=== PATIENT | female | born 1970 | race Caucasian/White ===

== ENCOUNTER 2016-05-05 19:54 | Emergency (ER) | payer BC ==
[2016-05-05] MEDS ORDERED: NS 0.9% 1000 ML* 2,000 ML IV ONE (20:41)
[2016-05-05] MEDS ORDERED: Ondansetron INJ* 2 MG/ML VIAL IV ONE (20:41)
[2016-05-05] MEDS ORDERED: Acetaminophen TAB* 325 MG PO ONE (20:42)
[2016-05-05 21:10] LABS: Hematocrit 38 % (35-47); Hemoglobin 12.5 g/dl (12.0-16.0); Mean Corpuscular HGB Conc 33 g/dl (31-36); Mean Corpuscular Hemoglobin 29 pg (27-31); Mean Corpuscular Volume 87 fL (80-97); Mean Platelet Volume 9 um3 (7.4-10.4); Red Blood Count 4.29 10^6/ul (4.0-5.4); Red Cell Distribution Width 13 % (10.5-15); White Blood Count 8.3 10^3/ul (3.5-10.8)
[2016-05-05 21:29] LABS: ALT 9 U/L (7-52); AST 15 U/L (13-39); Albumin 4.3 g/dL (3.2-5.2); Alkaline Phosphatase 33 U/L (34-104); Anion Gap 7 mmol/L (2-11); BUN/Creatinine Ratio 17.9 (8-20); Blood Urea Nitrogen 12 mg/dL (6-24); C Reactive Protein < 1.00 mg/L (< 5.00); CO2 Carbon Dioxide 24 mmol/L (22-32); Calcium 9.1 mg/dL (8.6-10.3); Chloride 106 mmol/L (101-111); EGFR African American 121.9 (>60); EGFR Non-African American 94.8 (>60); Globulin 2.6 g/dL (2-4); Glucose 96 mg/dL (70-100); Lipase 22 U/L (11.0-82.0); Magnesium 1.9 mg/dL (1.9-2.7); Potassium 3.7 mmol/L (3.5-5.0); Sodium 137 mmol/L (133-145); Total Protein 6.9 g/dL (6.4-8.9)
--- NOTE | 2016-05-05 21:44 | RAD ---
HISTORY: Headache, light sensitivity, nausea COMPARISONS: None TECHNIQUE: Multiple contiguous axial CT scans were obtained of the head without intravenous contrast. FINDINGS: HEMORRHAGE/INFARCT: There is no hemorrhage or acute infarct. MASSES/SHIFT: There is no mass or shift. EXTRA-AXIAL SPACES: There are no extra-axial fluid collections. SULCI AND VENTRICLES: The sulci and ventricles are normal in size and position for the patient's stated age. CEREBRUM: There are no focal parenchymal abnormalities. BRAINSTEM: There are no focal parenchymal abnormalities. CEREBELLUM: There are no focal parenchymal abnormalities. VESSELS: The vessels are grossly normal. PARANASAL SINUSES: The paranasal sinuses are clear. ORBITS: The orbits are unremarkable. BONES AND SOFT TISSUE: No bone or soft tissue abnormalities are noted. OTHER: None IMPRESSION: NO ACUTE INTRACRANIAL PATHOLOGY.
[2016-05-05 22:18] LABS: TSH (Thyroid Stimulating Horm) 1.04 mcIU/mL (0.34-5.60)
--- NOTE | 2016-05-05 22:22 | ED ---
Bisi Franco Alok, scribed for Shiraz Urbina MD on 05/05/16 at 2040 . Headache - HPI Summary HPI Summary: 46 y/o female presents to the ED for a diffuse COLON beginning in the afternoon and progressing ever since. Pt states what began as a slight COLON this afternoon she initially attributed to not having coffee this morning progressed into a very intense diffuse COLON by 1900 while at work prompting her visit to the ED. Pt also notes nausea but denies any weakness, numbness, vision changes, neck pain, or sinus discomfort. Pt states she took 3 Advil at 1915 [employer] which did not alleviate her symptoms, though her pain as improved somewhat since arriving to the ED. Pt takes no regular medications and denies any other pertinent PMHx at this time. - History Of Current Complaint Chief Complaint: EDHeadache Stated Complaint: SEVERE HEADACHE Time Seen by Provider: 05/05/16 20:20 Hx Obtained From: Patient Onset/Duration: Gradual Onset, Started hours ago, Still Present, Worse Since Initially Headache Was: Mild Currently Pain Is: Moderate Timing: Constant, Hours Location of Headache: Diffuse Aggravating Factor: Nothing Allevating Factors: Nothing Associated Signs And Symptoms: Nausea - Allergies/Home Medications Allergies/Adverse Reactions: Allergies Allergy/AdvReac Type Severity Reaction Status Date / Time No Known Allergies Allergy Verified 05/05/16 19:58 PMH/Surg Hx/FS Hx/Imm Hx - Cancer History Hx Chemotherapy: No Hx Radiation Therapy: No Infectious Disease History: No Infectious Disease History: Denies: Traveled Outside the [place] in Last 30 Days - Family History Known Family History: Positive: Other - Yes - Breast CA (Maternal grandmother) - Social History Occupation: Employed Full-time Lives: With Family - Review of Systems Negative: Blurred Vision ENT: Negative Negative: Other - Sinus Pressure Cardiovascular: Negative Respiratory: Negative Positive: Nausea Genitourinary: Negative Negative: Other - Neck Pain Skin: Negative Positive: Headache. Negative: Weakness, Numbness Psychological: Normal All Other Systems Reviewed And Are Negative: Yes Physical Exam Triage Information Reviewed: Yes Vital Signs On Initial Exam: Initial Vitals Temp Pulse Resp BP Pulse Ox 97.4 F 88 15 160/90 100 05/05/16 19:55 05/05/16 19:55 05/05/16 19:55 05/05/16 19:55 05/05/16 19:55 Vital Signs Reviewed: Yes Appearance: Positive: Well-Appearing, Pain Distress - Moderate Skin: Positive: Warm, Skin Color Reflects Adequate Perfusion, Dry Head/Face: Positive: Normal Head/Face Inspection Eyes: Positive: EOMI, LISSA ENT: Positive: Normal ENT inspection, TMs normal Neck: Positive: Supple, Nontender Respiratory/Lung Sounds: Positive: Clear to Auscultation, Breath Sounds Present Cardiovascular: Positive: RRR Abdomen Description: Positive: Nontender, Soft Bowel Sounds: Positive: Present Musculoskeletal: Positive: Strength/ROM Intact Neurological: Positive: Normal, Sensory/Motor Intact, Alert, Oriented to Person Place, Time, Other - No focal/neurological deficits Psychiatric: Positive: Affect/Mood Appropriate Diagnostics - Vital Signs Vital Signs Temp Pulse Resp BP Pulse Ox 05/05/16 19:55 97.4 F 88 15 160/90 100 - Laboratory Lab Results: Lab Results 05/05/16 05/05/16 05/05/16 Range/Units 21:00 21:00 21:00 WBC 8.3 (3.5-10.8) 10^3/ul RBC 4.29 (4.0-5.4) 10^6/ul Hgb 12.5 (12.0-16.0) g/dl Hct 38 (35-47) % MCV 87 (80-97) fL MCH 29 (27-31) pg MCHC 33 (31-36) g/dl RDW 13 (10.5-15) % Plt Count 202 (150-450) 10^3/ul MPV 9 (7.4-10.4) um3 Neut % (Auto) 45.6 (38-83) % Lymph % (Auto) 44.3 (25-47) % Freestone % (Auto) 6.2 (1-9) % Eos % (Auto) 3.3 (0-6) % Baso % (Auto) 0.6 (0-2) % Absolute Neuts (auto) 3.8 (1.5-7.7) 10^3/ul Absolute Lymphs (auto) 3.7 (1.0-4.8) 10^3/ul Absolute Monos (auto) 0.5 (0-0.8) 10^3/ul Absolute Eos (auto) 0.3 (0-0.6) 10^3/ul Absolute Basos (auto) 0.1 (0-0.2) 10^3/ul Absolute Nucleated RBC 0 10^3/ul Nucleated RBC % 0 INR (Anticoag Therapy) 1.10 (0.89-1.11) APTT 28.3 (26.0-36.3) seconds Sodium 137 (133-145) mmol/L Potassium 3.7 (3.5-5.0) mmol/L Chloride 106 (101-111) mmol/L Carbon Dioxide 24 (22-32) mmol/L Anion Gap 7 (2-11) mmol/L BUN 12 (6-24) mg/dL Creatinine 0.67 (0.51-0.95) mg/dL Est GFR ( Amer) 121.9 (>60) Est GFR (Non-Af Amer) 94.8 (>60) BUN/Creatinine Ratio 17.9 (8-20) Glucose 96 (70-100) mg/dL Lactic Acid (0.5-2.0) mmol/L Calcium 9.1 (8.6-10.3) mg/dL Magnesium 1.9 (1.9-2.7) mg/dL Total Bilirubin 0.50 (0.2-1.0) mg/dL AST 15 (13-39) U/L ALT 9 (7-52) U/L Alkaline Phosphatase 33 L (34-104) U/L C-Reactive Protein < 1.00 (< 5.00) mg/L Total Protein 6.9 (6.4-8.9) g/dL Albumin 4.3 (3.2-5.2) g/dL Globulin 2.6 (2-4) g/dL Albumin/Globulin Ratio 1.7 (1-3) Lipase 22 (11.0-82.0) U/L TSH 1.04 (0.34-5.60) mcIU/mL Beta HCG, Quant < 0.60 mIU/mL 05/05/16 Range/Units 21:00 WBC (3.5-10.8) 10^3/ul RBC (4.0-5.4) 10^6/ul Hgb (12.0-16.0) g/dl Hct (35-47) % MCV (80-97) fL MCH (27-31) pg MCHC (31-36) g/dl RDW (10.5-15) % Plt Count (150-450) 10^3/ul MPV (7.4-10.4) um3 Neut % (Auto) (38-83) % Lymph % (Auto) (25-47) % Freestone % (Auto) (1-9) % Eos % (Auto) (0-6) % Baso % (Auto) (0-2) % Absolute Neuts (auto) (1.5-7.7) 10^3/ul Absolute Lymphs (auto) (1.0-4.8) 10^3/ul Absolute Monos (auto) (0-0.8) 10^3/ul Absolute Eos (auto) (0-0.6) 10^3/ul Absolute Basos (auto) (0-0.2) 10^3/ul Absolute Nucleated RBC 10^3/ul Nucleated RBC % INR (Anticoag Therapy) (0.89-1.11) APTT (26.0-36.3) seconds Sodium (133-145) mmol/L Potassium (3.5-5.0) mmol/L Chloride (101-111) mmol/L Carbon Dioxide (22-32) mmol/L Anion Gap (2-11) mmol/L BUN (6-24) mg/dL Creatinine (0.51-0.95) mg/dL Est GFR ( Amer) (>60) Est GFR (Non-Af Amer) (>60) BUN/Creatinine Ratio (8-20) Glucose (70-100) mg/dL Lactic Acid 0.7 (0.5-2.0) mmol/L Calcium (8.6-10.3) mg/dL Magnesium (1.9-2.7) mg/dL Total Bilirubin (0.2-1.0) mg/dL AST (13-39) U/L ALT (7-52) U/L Alkaline Phosphatase (34-104) U/L C-Reactive Protein (< 5.00) mg/L Total Protein (6.4-8.9) g/dL Albumin (3.2-5.2) g/dL Globulin (2-4) g/dL Albumin/Globulin Ratio (1-3) Lipase (11.0-82.0) U/L TSH (0.34-5.60) mcIU/mL Beta HCG, Quant mIU/mL Result Diagrams: 05/05/16 21:00 05/05/16 21:00 Lab Statement: Any lab studies that have been ordered have been reviewed, and results considered in the medical decision making process. Re-Evaluation - Re-Evaluation First Eval Re-Evaluation Time: 21:50 Headache Course/Dx - Course Course Of Treatment: NO CRITICAL CARE TIME Assessment/Plan: HEADACHE ALMOST COMPLETELY RESOLVE WITH IVF, ZOFRAN AND ACETAMINOPHEN. DISCUSSED RESULTS WITH PATIENT/. DICHARGE HOME STABLE. - Diagnoses Provider Diagnoses: Headache Discharge - Discharge Plan Condition: Stable Disposition: HOME Patient Education Materials: General Headache (ED) Referrals: Italia Bryant MD [Primary Care Provider] - Additional Instructions: FOLLOW UP WITH YOUR DOCTOR. RETURN TO THE EMERGENCY DEPARTMENT FOR ANY WORSENING OF YOUR CONDITION; PAIN, HEADACHE, FEVER, WEAKNESS, YOU FEEL ILL OR QUESTIONS OR CONCERNS. The documentation as recorded by the Bisi joe Alok accurately reflects the service I personally performed and the decisions made by me, Shiraz Urbina MD.
[2016-05-05 22:35] VITALS: BP 118/66
== END 2016-05-05 22:33 | disposition home or self-care (01) ==
LOC: ED 19:54
DX: R51 Headache (principal); R11.0 Nausea
CPT/HCPCS: 36415; 70450; 80053; 83605; 83690; 83735; 84443; 84702; 85025; 85610; 85730; 86140; 96374; 99283; A9270-GY; J2405

== ENCOUNTER → 2018-02-03 08:53 | Day surgery (SDC) | payer BC ==
--- NOTE | 2017-12-23 09:37 | HP ---
PREOPERATIVE HISTORY AND PHYSICAL: DATE OF ADMISSION/SURGERY: 01/13/18 DATE OF OFFICE VISIT: 12/20/17 ATTENDING PHYSICIAN: Dr. Jabari Guillermo.* (DICTATED BY MARIZA CUNNINGHAM) CHIEF COMPLAINT: Right shoulder pain and stiffness. 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 No specific injury. Nighttime pain. She has participated in over 6 weeks of physical therapy and additional home exercises, which have not benefitted her significantly. She continues to have achy pain and stiffness, which is her biggest complaint. She has tried ibuprofen 400 mg regularly and has not noticed improvement. She had an MRI of the shoulder 08/11/17, which shows tendinopathy of the supraspinatus tendon and signal change along the bursal surface of the supraspinatus consistent with a low-grade partial thickness bursal sided tear. There are also degenerative changes noted about the AC joint. Due to failure of conservative management, the patient has elected to proceed with right shoulder arthroscopy, debridement, capsular release with Dr. Guillermo , which is scheduled for 01/13/18. PAST MEDICAL HISTORY: Relatively benign. PAST SURGICAL HISTORY: She has had multiple D and C surgeries. MEDICATIONS: B12 spray and vitamin D. ALLERGIES: No known drug allergies. FAMILY HISTORY: Father with history of heart disease and mother with history of hypertension. SOCIAL HISTORY: Does not smoke or use illicit drugs. She drinks beer and does enjoy beer occasionally. REVIEW OF SYSTEMS: The patient denies recent loss of consciousness, lightheadedness, dizziness, shortness of breath, chest pain, or palpitations. She denies gastrointestinal or genitourinary complaints. PHYSICAL EXAMINATION GENERAL: The patient is pleasant, cooperative, alert and oriented x3, in no acute distress. VITAL SIGNS: Height 59 inches, weight 150, pulse 76, BP 110/60. EXTREMITIES: Examination of the right shoulder reveals no obvious soft tissue swelling or bruising. Her skin is intact. Passive forward flexion is limited to about 120 degrees, 45 degrees of external rotation, 20 degrees of internal rotation. Positive Neer's and Martinez. Positive pain with supraspinatus stress testing. Negative Speed's and [place]'s. Negative tenderness over the AC joint and biceps tendon proximally. Her sensation and circulation intact distally. DIAGNOSTIC STUDIES: MRI of the patient's shoulder obtained August 11, 2017, reveals tendinopathy of the supraspinatus tendon. There are some signal changes along the bursal surface of the supraspinatus consistent with low grade partial thickness bursal-sided tear. There are some degenerative changes noted in the AC joint as well. IMPRESSION: 1. Right shoulder subacromial bursitis and impingement. 2. Right shoulder acromioclavicular joint arthritis. 3. Right shoulder stiffness and capsulitis 4. Right shoulder supraspinatus rotator cuff tear, low grade partial thickness bursal-sided PLAN: 1. The patient has failed conservative management. She elects to proceed with surgical intervention. 2. To the operating room for manipulation under anesthesia, arthroscopic lysis of adhesions with capsulotomy, subacromial decompression, distal clavicle resection, evaluation & treatment of rotator cuff (more likely debridement) and evaluation and treatment of biceps (release versus tenodesis). 3. The patient's questions were answered today. Risks and benefits reviewed by Dr. Guillermo at the office visit on 12/20/17. All questions were answered. She elects to proceed. MARIZA CUNNINGHAM [id number]/[facility] #: [id number] MTDD
[~2018-02-03 08:53] MED LIST: Buffered Lidocaine 0.9% SYRIN* 5 ML/SYR SYRINGE INTRADERM ONE; Bupivacaine 0.25% SDV PF* 10 ML VIAL INJ ONE; Dexamethasone IV* 4 MG/ML 1 ML (4 MG) IV SLOW PU ONE; Dexamethasone IV* 4 MG/ML 1 ML (4 MG) ONE; DiMENhydriNATE IV* 50 MG/ML VIAL IV PUSH PRN; EPINEPHRINE 1 MG/ML 1 ML VIAL ONE; Famotidine IV* 10 MG/ML 2 ML (20 mg) IV ONE; Famotidine IV* 10 MG/ML 2 ML (20 mg) ONE; HYDROmorphone INJ1* 1 MG/ML SYRINGE IV PRN; Lactated Ringers 1000 ML Bag* 1,000 ML IV SCH; Lidocaine 2% PF * 5 ML VIAL ONE; Midazolam* 1 MG/ML 5 ML VIAL (5 MG) ONE; Naloxone* 0.4 MG/ML 1 ML VIAL IV PRN; Ondansetron INJ* 2 MG/ML VIAL IV PRN; Ondansetron INJ* 2 MG/ML VIAL ONE; Propofol* 10 MG/ML 20 ML BTL ONE; ROPIVACAINE 5 MG/ML 30 ML BTL (0.5%) ONE; Scopolamine 1.5 mg* PATCH TRANSDERM PRN; ceFAZolin 2 GM PREMIX in ORs 2 GM/50 ML BAG IVPB ONE; fentaNYL* 50 MCG/ML 2 ML VIAL (100 MCG VIAL) IV PRN; fentaNYL* 50 MCG/ML 2 ML VIAL (100 MCG VIAL) ONE; oxyCODONE/Acetamin 5/325 MG* TAB PO PRN
[2018-02-03 15:34] VITALS: BP 137/75
--- NOTE | 2018-02-05 09:34 | OP ---
OPERATIVE NOTE: DATE OF OPERATION: 02/03/18 DATE OF : 70 SURGEON: Dr. Jabari Guillermo. MILLINERY DEPARTMENT MANAGER: MARIZA Tsang. A physician lead assistant manager was required for the length of the procedure for help with positioning, manipul ation, instrumentation, and closure. ANESTHESIOLOGIST: Dr. Allen Morgan. ANESTHESIA: General anesthesia, regional interscalene block anesthesia, local anesthesia consisting of 22 cc of 0.25% Marcaine with epinephrine. PRE-OP DIAGNOSES: 1. Right shoulder subacromial bursitis and impingement. 2. Right shoulder AC joint arthritis. 3. Possible right shoulder biceps tendinosis. 4. Possible right shoulder rotator cuff tear. 5. Right shoulder capsulitis, stiffness. POST-OP DIAGNOSES: 1. Right shoulder subacromial bursitis and impingement. 2. Right shoulder AC joint arthritis. 3. Right shoulder capsulitis. 4. Right shoulder mild rotator cuff tendinitis, no tear. 5. Right shoulder proximal biceps tendinosis. OPERATIVE PROCEDURES: 1. Right shoulder arthroscopic subacromial decompression. 2. Right shoulder arthroscopic distal clavicle resection. 3. Right shoulder arthroscopic lysis of adhesions including capsulotomy and manipulation under anest hesia. 4. Right shoulder evaluation of rotator cuff. 5. Right shoulder open proximal biceps tenodesis, subpectoral. IV FLUIDS: See Anesthesia note. ANTIBIOTICS: Ancef 2 g IV. [id number] TIME: 75 minutes. ARTHROSCOPIC FLUID UTILIZED: Six bags each with 3 L for a total of 18 L. SPECIMENS: None. IMPLANTS: Arthrex proximal biceps unicortical button x1. COMPLICATIONS: None. ESTIMATED BLOOD LOSS: Minimal. 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 Her complaints were pain and decreased range of motion. This was worsening over time despite treatment with cortisone, physical therapy, home exercises, and NSAIDs. Daytime and nighttime pain. MRI showed some AC joint osteoarthritis and a possible low-grade partial - thickness bursal-sided supraspinatus tear. I discussed biceps evaluation and treatment with the patient, and the pros and cons of biceps release versus tenodesis, and the patient opted for tenodesis. DESCRIPTION OF PROCEDURE: The patient signed consent in preoperative holding. Operative extremity wa s marked in preoperative holding. The patient was taken back to the operating room after Dr. Jose gordon performed an interscalene regional nerve block in preoperative holding. The patient was laid supine on the operating room table. Sedated and intubated. The patient was turn ed into the lateral decubitus position with the right shoulder up in longitudinal traction with the a ppropriate forward flexion and abduction. Axillary roll. Beanbag hardened. All bony prominences pad ded. Right shoulder prepped and draped. Surgical time-out performed. Right shoulder was entered wi th a spinal needle and then 30 cc normal saline infused. Established posterior portal using a standa rd technique. Commenced diagnostic arthroscopy. The patient had no articular cartilage wear. I did note tendinosis along the proximal biceps tendon. No significant superior labral tear. No tearing w hatsoever of rotator cuff tendons noted. It should be stated that when the patient was supine, prior to being converted into the lateral decub itus position, I first performed a mini time-out and then I performed an exam under anesthesia. The patient had forward flexion of 180, external rotation of 90, but internal rotation only to 45 degrees . I, therefore, performed manipulation. While there was no audible or palpable crackling or popping that occurred, I was able to improve the patient's internal rotation with this manipulation to 70 de grees or more of internal rotation. Getting back to the arthroscopy, based on the significant erythema along the biceps tendon, I decided to treat the biceps tendon. I established an anterior glenohumeral joint portal under direct visualization. I brought an arthros copic scissors in and cut the biceps tendon near its origin. I debrided the stump with an arthroscop ic shaver. I noted some erythema of the capsule about the shoulder, likely some tearing caused by the manipulati on under anesthesia. To improve the range of motion of the shoulder further, I used the arthroscopic shaver to debride sca r tissue about the rotator interval. I then placed my arthroscope anterior and placed a hook tip cau milagros device through the posterior portal and released the posterior capsule down to the 6 o'clock pos ition. I then used the arthroscopic shaver to debride the capsule edges such that there was some chucky e gapping of the capsule about the posterior and posteroinferior glenohumeral joint. I removed instruments and fluid from the glenohumeral joint and moved to the subacromial space. I en countered significant bursitis in the subacromial space consistent with significant subacromial bursi tis. I made a lateral and then a posterolateral portal under direct visualization. I used an arthro scopic shaver to debride the significant amount of bursitis. This allowed me to then well visualize the rotator cuff. There was no rotator cuff tendon tear, full or partial thickness appreciated. I then used an arthroscopic bur to remove the undersurface of the anterior aspect of the acromion. S purring was particularly notable about the acromion in the vicinity of the AC joint. I flattened out the undersurface of the acromion nicely. I next moved to the AC joint. I debrided with a vapor the bursitic tissue about that joint. I then removed 8 mm of the distal end of the clavicle with an arthroscopic bur. Closed skin incisions with [id number] in 12 stitches using nylon 3-0 suture. Converted the patient to a supine position. Made a longitudinal anteromedial upper arm skin incision centered just distal to the distal aspect of the pectoralis major tendon. Dissected down to bicipit al groove. Placed retractor. Pulled the long head of biceps tendon from wound. Placed FiberLoop mata ture and button. Placed the button and flipped it. Tied a knot and then placed an additional knot u sing a free needle. Removed excess tendon and suture. Irrigation. Closure of the subcutaneous tiss ue with buried simple stitches using Vicryl 3-0 suture. Subcuticular closure was done with a running stitch using Monocryl 4-0 suture. Local anesthesia 22 cc was applied to the subcutaneous tissue. Mas tisol and Steri- Strips, 4x4, and a Tegaderm over the biceps incision area. Other incisions received Tegaderm, 4x4s, ABDs, and foam tape. The patient was placed in a sling without abduction pillow. S he was awakened, extubated, and transferred to the PACU. Discharged home when medically stable. Wou nd care instructions provided. The patient was sent home with prescriptions for Percocet as needed fo r pain control, Keflex for 5 days, and aspirin x2 weeks. The patient will follow up in 10 to 14 days postoperatively. She will begin physical therapy immediately. [id number]/[facility] #: [id number]
== END | disposition home or self-care (01) ==
LOC: OR 08:53
PROVIDERS: ATTEND Orthopaedic Surgery
DX: M75.41 Impingement syndrome of right shoulder (principal); M75.01 Adhesive capsulitis of right shoulder; M19.011 Primary osteoarthritis, right shoulder; M75.21 Bicipital tendinitis, right shoulder; G89.18 Other acute postprocedural pain; I73.00 Raynaud's syndrome without gangrene
CPT/HCPCS: 81025; C1776; J0690; J1100; J2250; J2405; J2704; J2795; J3010; J3490

== ENCOUNTER 2018-03-27 20:41 | Emergency (ER) | payer BC ==
[2018-03-27 20:51] VITALS: BP 121/77
--- NOTE | 2018-03-27 21:07 | ED ---
Upper Extremity Pain - HPI Summary HPI Summary: 47-year-old female presents with right shoulder and rib pain today. States she fell in her basement. She states she had surgery on this shoulder couple months ago for her rotator cuff. She denies any numbness or tingling. She states that chest landed on her right hip. She has been able to ambulate. She states that she is having some wrist right pain but has full range of motion. No medical conditions. - History of Current Complaint Chief Complaint: UCUpperExtremity Stated Complaint: SHOULDER AND ARM INJURY Time Seen by Provider: 03/27/18 20:55 Hx Last Menstrual Period: 02/21/18 - Allergies/Home Medications Allergies/Adverse Reactions: Allergies Allergy/AdvReac Type Severity Reaction Status Date / Time No Known Allergies Allergy Verified 03/27/18 20:51 PMH/Surg Hx/FS Hx/Imm Hx Endocrine/Hematology History: Denies: Hx Diabetes Cardiovascular History: Denies: Hx Hypertension, Hx Pacemaker/ICD History: Denies: Hx Renal Disease Musculoskeletal History: Reports: Hx Arthritis - right shoulder, Hx Bursitis Sensory History: Reports: Hx Contacts or Glasses - glasses Denies: Hx Hearing Aid Opthamlomology History: Reports: Hx Contacts or Glasses - glasses Psychiatric History: Denies: Hx Panic Disorder - Cancer History Hx Chemotherapy: No Hx Radiation Therapy: No - Surgical History Surgery Procedure, Year, and Place: wisdom teeth extracted. several D&C's Hx Anesthesia Reactions: No Infectious Disease History: No Infectious Disease History: Denies: Traveled Outside the [place] in Last 30 Days - Family History Known Family History: Positive: Other - Yes - Breast CA (Maternal grandmother) - Social History Alcohol Use: Occasionally Substance Use Type: Reports: None Hx Tobacco Use: No Smoking Status (MU): Never Smoked Tobacco Review of Systems Negative: Fever Negative: Chest Pain Negative: Shortness Of Breath Positive: Myalgia - right shoulder and rib pain All Other Systems Reviewed And Are Negative: Yes Physical Exam Triage Information Reviewed: Yes Vital Signs On Initial Exam: Initial Vitals Temp Pulse Resp BP Pulse Ox 99.7 F 79 6 121/77 100 03/27/18 20:47 03/27/18 20:47 03/27/18 20:47 03/27/18 20:47 03/27/18 20:47 Vital Signs Reviewed: Yes Appearance: Positive: Well-Appearing Skin: Positive: Warm, Dry Head/Face: Positive: Normal Head/Face Inspection Eyes: Positive: Normal, Conjunctiva Clear ENT: Positive: Pharynx normal Respiratory/Lung Sounds: Positive: Clear to Auscultation, Breath Sounds Present , Other - tenderness right side of ribs 6-8, Cardiovascular: Positive: Normal, RRR Musculoskeletal: Positive: Strength/ROM Intact - right wrist, elbow and hand, Limited @ - right shoulder, Other - tenderness right shoulder, good pulses, good pick up truck driver strength Neurological: Positive: Normal Psychiatric: Positive: Normal Diagnostics - Vital Signs Vital Signs Temp Pulse Resp BP Pulse Ox 03/27/18 20:47 99.7 F 79 6 121/77 100 - Laboratory Lab Statement: Any lab studies that have been ordered have been reviewed, and results considered in the medical decision making process. - Radiology rib Radiology Interpretation Completed By: ED Physician Summary of Radiographic Findings: no fracture shoulder Radiology Interpretation Completed By: ED Physician Summary of Radiographic Findings: no fracture Course/Dx - Course Course Of Treatment: 47-year-old female presents with right shoulder and rib pain today. States she fell in her basement. She states she had surgery on this shoulder couple months ago for her rotator cuff. She denies any numbness or tingling. She states that chest landed on her right hip. She has been able to ambulate. She states that she is having some wrist right pain but has full range of motion. No medical conditions. On exam has full ROM motion of wrist elbow and hand. Able to ambulate. Tenderness over right shoulder and right lateral ribs. xrays shoulder and ribs normal as read by me. told to ice. has follow up with ortho next week. patient understand and agrees with plan. - Diagnoses Differential Diagnosis/HQI/PQRI: Positive: Fracture (Closed), Strain, Sprain Provider Diagnoses: Right shoulder pain, Rib pain on right side Discharge - Sign-Out/Discharge Documenting (check all that apply): Patient Departure All imaging exams completed and their final reports reviewed: No - Discharge Plan Condition: Good Disposition: HOME Patient Education Materials: Shoulder Pain (ED), Rib Contusion (ED) Referrals: Jabari Guillermo MD [Medical Doctor] - Italia Bryant MD [Primary Care Provider] - Additional Instructions: Take Tylenol and ibuprofen every 6 hours as needed for pain Ice/heat Can rest for one day and then need to do range of motion activities for shoulder as tolerated Follow up with ortho as scheduled tale deep breaths throughout the day Return to ED if develop any new or worsening symptoms - Billing Disposition and Condition Condition: GOOD Disposition: Home - Attestation Statements Provider Attestation: I was available for consult. This patient was seen by the BRIAN. The patient was not presented to, seen by, or examined by me. -Harriet
--- NOTE | 2018-03-28 12:00 | UC ---
- Progress Note Progress Note: Patient Name: MARIANNE GARRETT Medical Record#: [id number] Ordering Physician: Aranza DAWKINS Acct.#: [id number] : 1970 Age: 47 Sex: F Location: [facility] Exam Date: 03/27/182057 ADM Status: DEP ER Order Information: RIBS RT UNI W/PA CH MIN 3 VWS Accession Number: [id number] CPT: 98609 HISTORY: right rib pain COMPARISONS: None VIEWS: 7 , Frontal view of the chest with frontal and oblique views of the right hemithorax. FINDINGS: There is no displaced rib fracture or pneumothorax. The visualized lungs are clear. IMPRESSION: NO DISPLACED RIB FRACTURE OR PNEUMOTHORAX. R0 Preliminary Imaging Read R0 <Electronically signed by Mane Diaz MD in OV> 03/28/18746 Dictated By: Mane Diaz MD Dictated Date/Time: 03/28/18746 Transcribed Date/Time: 03/28/18745 Copy to: CC:Aranza DAWKINS; Ivy Edward MD; Italia Bryant MD Imaging - [facility] Imaging - [facility] [address] [place] [address] ph ([phone] ph ([phone]) ph ([phone]) This report is only to be considered final once signed by the Provider(s) as displayed in the "<Electronically Signed by >" field (s). Absence of a signature indicates the report is in a draft status and still needs to be finalized. In the event this document was created by someone other than the signing Provider, the individual initiating the document will be listed in the "Entered by:" or "Dictated by:" [email or web address]. 1 of 1 Patient Name: MARIANNE GARRETT Medical Record#: [id number] Ordering Physician: Aranza DAWKINS Acct.#: [id number] : 1970 Age: 47 Sex: F Location: [facility] Exam Date: 03/27/182057 ADM Status: DEP ER Order Information: SHOULDER RIGHT 2+ VWS Accession Number: [id number] CPT: 67764 HISTORY: right shoulder pain COMPARISONS: April 11, 2017 VIEWS: 4 , Frontal internal rotation, external rotation, outlet, and axillary views of the right shoulder FINDINGS: BONE DENSITY: Normal. BONES: There is post surgical change to the proximal right humerus and distal clavicle. There is no acute displaced fracture. JOINTS: There is mild glenohumeral osteoarthritis with moderate a.c. osteoarthritis. ALIGNMENT: There is no dislocation. SOFT TISSUES: Unremarkable. OTHER FINDINGS: None. IMPRESSION: POSTSURGICAL CHANGE. NO ACUTE OSSEOUS INJURY. IF SYMPTOMS PERSIST, RECOMMEND REPEAT IMAGING R0 Preliminary Imaging Read R0 <Electronically signed by Mane Diaz MD in OV> 03/28/18744 Dictated By: Mane Diaz MD Dictated Date/Time: 03/28/18744 Transcribed Date/Time: 03/28/18743 Copy to: CC:Aranza DAWKINS; Ivy Edward MD; Italia Bryant MD Imaging - [facility] Imaging - [facility] This report is only to be considered final once signed by the Provider(s) as displayed in the "<Electronically Signed by >" field (s). Absence of a signature indicates the report is in a draft status and still needs to be finalized. In the event this document was created by someone other than the signing Provider, the individual initiating the document will be listed in the "Entered by:" or "Dictated by:" rodriguez. 1 of 2 Course/Dx - Diagnoses Provider Diagnoses: Right shoulder pain, Rib pain on right side Discharge - Sign-Out/Discharge Documenting (check all that apply): Post-Discharge Follow Up All imaging exams completed and their final reports reviewed: Yes - Discharge Plan Condition: Good Disposition: HOME Patient Education Materials: Shoulder Pain (ED), Rib Contusion (ED) Referrals: Jabari Guillermo MD [Medical Doctor] - Italia Bryant MD [Primary Care Provider] - Additional Instructions: Take Tylenol and ibuprofen every 6 hours as needed for pain Ice/heat Can rest for one day and then need to do range of motion activities for shoulder as tolerated Follow up with ortho as scheduled tale deep breaths throughout the day Return to ED if develop any new or worsening symptoms - Billing Disposition and Condition Condition: GOOD Disposition: Home
== END 2018-03-27 21:52 | disposition home or self-care (01) ==
LOC: UCEAST 20:41
DX: M25.511 Pain in right shoulder (principal); R07.81 Pleurodynia
CPT/HCPCS: 99211; G0463

== ENCOUNTER → 2019-03-13 09:06 | Emergency (ER) | payer BC ==
[2019-03-13 09:16] VITALS: BP 129/72
--- NOTE | 2019-03-13 10:20 | UC ---
Throat Pain/Nasal Zeke HPI - HPI Summary HPI Summary: 48 yo female presents with flu-like symptoms. She tells me that over the last 4 days has had fatigue, body aches, runny nose, and dry cough. She has been taking OTC cold medication with mild relief. She did get a flu shot this year. 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 She has felt feverish, but has not taken her temperature. Denies SOB, chest pain, abdominal pain, n/v, dysuria. - History of Current Complaint Chief Complaint: UCGeneralIllness Stated Complaint: UPPER RESPIRATORY ISSUE Time Seen by Provider: 03/13/19 10:19 Hx Obtained From: Patient Hx Last Menstrual Period: 03/09/19 Onset/Duration: Sudden Onset Severity: Moderate Pain Intensity: 7 Pain Scale Used: 0-10 Numeric - Allergies/Home Medications Allergies/Adverse Reactions: Allergies Allergy/AdvReac Type Severity Reaction Status Date / Time No Known Allergies Allergy Verified 03/13/19 09:16 Home Medications: Home Medications NK [No Home Medications Reported] 03/13/19 [History Confirmed 03/13/19] PMH/Surg Hx/FS Hx/Imm Hx - Additional Past Medical History Additional PMH: None - Surgical History Surgical History: Yes Surgery Procedure, Year, and Place: wisdom teeth extracted. several D&C's - Family History Known Family History: Positive: Other - Yes - Breast CA (Maternal grandmother) - Social History Occupation: Employed Full-time Lives: With Family Alcohol Use: Occasionally Substance Use Type: None Smoking Status (MU): Never Smoked Tobacco Review of Systems All Other Systems Reviewed And Are Negative: No Constitutional: Positive: Fatigue, Other - Body aches Skin: Positive: Negative Eyes: Positive: Negative ENT: Positive: Nasal Discharge Respiratory: Positive: Cough Cardiovascular: Positive: Negative Gastrointestinal: Positive: Negative Neurological: Positive: Negative Psychological: Positive: Negative Physical Exam - Summary Physical Exam Summary: GENERAL: NAD. WDWN. No pain distress. SKIN: No rashes, sores, lesions, or open wounds. HEENT: Head: AT/NC Eyes: EOM intact. Conjunctiva clear without inflammation or discharge. Ears: Hearing grossly normal. TMs intact, no bulging, erythema, or edema. Nose: Nasal mucosa pink and moist. NTTP maxillary and frontal sinus. Throat: Posterior oropharynx without exudates, erythema, or tonsillar enlargement. Uvula midline. NECK: Supple. Nontender. No lymphadenopathy. CHEST: CTAB. No r/r/w. No accessory muscle use. Breathing comfortably and in no distress. CV: RRR. Pulses intact. Cap refill <2seconds NEURO: Alert. PSYCH: Age appropriate behavior. Triage Information Reviewed: Yes Vital Signs: Initial Vital Signs Temp 98.9 F 03/13/19 09:13 Pulse 95 03/13/19 09:13 Resp 17 03/13/19 09:13 BP 129/72 03/13/19 09:13 Pulse Ox 100 03/13/19 09:13 Laboratory Tests 03/13/19 10:37 Influenza A (Rapid) Negative Influenza B (Rapid) Negative Vital Signs Reviewed: Yes Throat Pain/Nasal Course/Dx - Course Course Of Treatment: POC flu negative. Suspect viral flu-like illness. Advised continued supportive care and be rechecked if symptoms worsen - Differential Dx/Diagnosis Provider Diagnosis: Viral syndrome Discharge ED - Sign-Out/Discharge Documenting (check all that apply): Patient Departure All imaging exams completed and their final reports reviewed: No Studies - Discharge Plan Condition: Stable Disposition: HOME Patient Education Materials: Influenza (ED), Viral Syndrome (ED) Forms: *Work Release Referrals: Italia Bryant MD [Primary Care Provider] - Additional Instructions: YOUR FLU TEST TODAY WAS NEGATIVE, BUT YOUR SYMPTOMS ARE VERY CLOSE TO OTHER CASES OF THE FLU SEEN THIS YEAR. I recommend you be out of work the rest of the week. If your symptoms worsen or change - please be rechecked. Most people with the flu recover within one to two weeks without treatment. However, serious complications of the flu can occur. Go to the ER immediately if you: -- You feel short of breath or have trouble breathing -- You have pain or pressure in your chest or stomach -- You have signs of being dehydrated, such as dizziness when standing or not passing urine -- You feel confused -- You cannot stop vomiting or you cannot drink enough fluids Treat symptoms Treating the symptoms of influenza can help you to feel better but will not make the flu go away faster. -- Rest until the flu is fully resolved, especially if the illness has been severe. -- Fluids Drink enough fluids so that you do not become dehydrated. One way to trial court judge if you are drinking enough is to look at the color of your urine. Normally, urine should be light yellow to nearly colorless. If you are drinking enough, you should pass urine every three to five hours. -- Acetaminophen (sample brand name: Tylenol) can relieve fever, headache, and muscle aches. Aspirin and medicines that include aspirin (eg, bismuth subsalicylate [sample brand name: Pepto-Bismol]) are not recommended for children under 18 because aspirin can lead to a serious disease called Unruly syndrome. -- Cough medicines are not usually helpful; cough usually resolves without treatment. We do not recommend cough or cold medicine for children under age 6 years. - Billing Disposition and Condition Condition: STABLE Disposition: Home
[2019-03-13 10:49] LABS: Influenza A Molecular Negative (Negative); Influenza B Molecular Negative (Negative)
== END | disposition home or self-care (01) ==
LOC: UCEAST 09:06
DX: B34.9 Viral infection, unspecified (principal); R53.83 Other fatigue; R09.81 Nasal congestion